=== PATIENT | male | born 1955 | race Hispanic/Latino ===

== ENCOUNTER 2021-01-17 05:52 | Day surgery (SDC) | payer OTHER ==
[~2021-01-17] VITALS: Ht 175.3 cm; Wt 129.3 kg
[~2021-01-17 05:52] MED LIST: ACET-66 PO; AEC81 PO; ATOR20TA65 PO; LOSA25TA41 PO; MELO15TA12 PO
[2021-01-17] MEDS ORDERED: 0.9%NACL 1000ML 1,000 ML IV ONE (06:21)
[2021-01-17 06:30] VITALS: BP 150/79
[2021-01-17] MEDS ORDERED: PROPOFOL 10 MG/ML 20ML VIAL IV ONE (06:56)
[2021-01-17] MEDS ORDERED: LIDOCAINE HCL 400MG/20ML VIAL IJ ONE (06:57)
[2021-01-17] MEDS ORDERED: SIMETHICONE 40 MG/0.6 ML ML ONE (07:34)
[2021-01-17 07:50] VITALS: BP 112/59
[2021-01-17 07:55] VITALS: BP 121/65
[2021-01-17 08:00] VITALS: BP 133/76
[2021-01-17 08:15] VITALS: BP 139/74
== END 2021-01-17 08:15 | disposition home or self-care (01) ==
LOC: ENDO 05:52 → DAH 05:52 → ENDO 08:15
PROVIDERS: ATTEND Internal Medicine Gastroenterology
DX: C20 Malignant neoplasm of rectum (principal); Z20.822 Contact with and (suspected) exposure to COVID-19; I10 Essential (primary) hypertension; E78.5 Hyperlipidemia, unspecified; M19.90 Unspecified osteoarthritis, unspecified site; Z98.890 Other specified postprocedural states; Z90.89 Acquired absence of other organs; Z87.891 Personal history of nicotine dependence; Z79.899 Other long term (current) drug therapy; Z79.82 Long term (current) use of aspirin
CPT/HCPCS: 45341; 87426; 93005; A4215 ×2; A4221; A4222; A4223; A4606; A4620; A4657 ×2; A4663; J2704; J3490; J7030

== ENCOUNTER → 2021-01-18 | Outpatient (CLI) | payer OTHER ==
[~2021-01-18] MED LIST changes: +IOHEXOL 350 MG/ML 100ML INFUS..BTL IV ONE; +LIDOCAINE HCL 400MG/20ML VIAL ONE; +PROPOFOL 10 MG/ML 20ML VIAL IV ONE
== END | disposition home or self-care (01) ==
LOC: EDUNIT# 08:00 → RAH 08:42
PROVIDERS: ATTEND Internal Medicine Gastroenterology
DX: Z53.21 Procedure and treatment not carried out due to patient leaving prior to being seen by health care provider (principal); C20 Malignant neoplasm of rectum
CPT/HCPCS: J2704; J3490; Q9967